=== PATIENT | female | born 1985 | race Caucasian/White ===

== ENCOUNTER 2017-07-10 18:08 | Emergency (ER) | payer OTHER ==
[~2017-07-10 18:08] MED LIST: ALBUTEROL
[2017-07-10 18:19] VITALS: BP 140/88
== END 2017-07-10 19:51 | disposition home or self-care (01) ==
LOC: ED 18:08
DX: H61.21 Impacted cerumen, right ear (principal); J45.909 Unspecified asthma, uncomplicated; Z88.6 Allergy status to analgesic agent; Z79.51 Long term (current) use of inhaled steroids

== ENCOUNTER 2017-11-05 11:31 | Emergency (ER) | payer OTHER ==
[2017-11-05 14:02] VITALS: BP 139/98
== END 2017-11-05 14:02 | disposition home or self-care (01) ==
LOC: ED 11:31
DX: J32.0 Chronic maxillary sinusitis (principal); J45.909 Unspecified asthma, uncomplicated; F17.210 Nicotine dependence, cigarettes, uncomplicated; F14.10 Cocaine abuse, uncomplicated; Z88.6 Allergy status to analgesic agent

== ENCOUNTER 2018-04-07 14:58 | Emergency (ER) | payer OTHER ==
[~2018-04-07] VITALS: Ht 152.4 cm; Wt 66.7 kg
[2018-04-07 14:59] VITALS: BP 149/72; Ht 152.4 cm; Wt 66.7 kg
== END 2018-04-07 16:14 | disposition home or self-care (01) ==
LOC: ED 14:58
DX: H61.22 Impacted cerumen, left ear (principal); J45.909 Unspecified asthma, uncomplicated; H60.92 Unspecified otitis externa, left ear; Z88.6 Allergy status to analgesic agent; Z88.5 Allergy status to narcotic agent

== ENCOUNTER 2018-07-24 07:51 | Emergency (ER) | payer OTHER ==
[2018-07-24 07:55] VITALS: BP 138/74; Ht 152.4 cm
== END 2018-07-24 08:21 | disposition home or self-care (01) ==
LOC: ED 07:51
DX: S00.83XA Contusion of other part of head, initial encounter (principal); Y04.0XXA Assault by unarmed brawl or fight, initial encounter; Y93.89 Activity, other specified; Y92.89 Other specified places as the place of occurrence of the external cause; Y99.8 Other external cause status; Z88.6 Allergy status to analgesic agent; J45.909 Unspecified asthma, uncomplicated

== ENCOUNTER 2018-09-02 18:17 | Emergency (ER) | payer OTHER ==
[~2018-09-02] VITALS: Ht 165.1 cm; Wt 59.9 kg
[2018-09-02 18:29] VITALS: Ht 165.1 cm; Wt 59.9 kg
[2018-09-02 20:19] VITALS: BP 109/72
== END 2018-09-02 20:19 | disposition home or self-care (01) ==
LOC: ED 18:17
DX: J04.0 Acute laryngitis (principal); M94.0 Chondrocostal junction syndrome [Tietze]; Z88.6 Allergy status to analgesic agent; J45.909 Unspecified asthma, uncomplicated
CPT/HCPCS: Q0092

== ENCOUNTER 2019-05-29 05:55 | Emergency (ER) | payer OTHER ==
[~2019-05-29] VITALS: Ht 162.6 cm; Wt 61.7 kg
[2019-05-29 06:07] VITALS: BP 111/81; Ht 162.6 cm; Wt 61.7 kg
== END 2019-05-29 07:45 | disposition home or self-care (01) ==
LOC: ED 05:55
DX: H60.501 Unspecified acute noninfective otitis externa, right ear (principal); J45.909 Unspecified asthma, uncomplicated; Z88.6 Allergy status to analgesic agent

== ENCOUNTER 2019-06-03 20:30 | Emergency (ER) | payer OTHER ==
[~2019-06-03] VITALS: Ht 152.4 cm; Wt 62.6 kg
[2019-06-03 21:03] VITALS: Ht 152.4 cm; Wt 62.6 kg
[2019-06-03 21:51] LABS: BASOPHIL % 0.2 % (0-2); PLATELET COUNT 380 x10^3mcL (130-400); RED CELL DISTRIBUTION WIDTH 13.9 % (11.5-14.5)
[2019-06-03 21:57] LABS: CALCIUM 8.4 mg/dL (8.5-10.1); CARBON DIOXIDE 24.9 mmol/L (21-32); CHLORIDE SERUM 108 mmol/L (98-107); CREATININE SERUM 0.7 mg/dL (0.6-1.0); GFR1 > 60 mL/min; GLUCOSE SERUM 116 mg/dL (74-106); POTASSIUM SERUM 3.1 mmol/L (3.5-5.1); SODIUM SERUM 141 mmol/L (136-145)
[2019-06-03 22:01] LABS: ALKALINE PHOSPHATASE 55 U/L (46-116); ALT/SGPT 26 U/L (14-59); AST/SGOT 12 U/L (15-37); BILIRUBIN TOTAL 0.13 mg/dL (0.20-1.00); LIPASE 135 IU/L (73-393); TOTAL PROTEIN, SERUM 6.8 g/dL (6.4-8.2)
[2019-06-03 22:02] LABS: ALBUMIN 3.3 g/dL (3.4-5.0)
[2019-06-04 01:10] VITALS: BP 126/80
== END 2019-06-04 01:10 | disposition home or self-care (01) ==
LOC: ED 20:30
PROVIDERS: Emergency Medicine
DX: R10.13 Epigastric pain (principal); E87.6 Hypokalemia; J45.909 Unspecified asthma, uncomplicated; Z88.6 Allergy status to analgesic agent
CPT/HCPCS: 36415; Q0092